=== PATIENT | female | born 1960 | race Caucasian/White ===

== ENCOUNTER → 2018-07-03 | Outpatient (CLI) | payer BC ==
[~2018-07-03] MED LIST: HYDACE5 PO; KETO10 PO; PARO20 PO; PARO30 PO; PRAV10 PO; Percocet 5-3251 EACH PO; VENL37.5ER
== END | disposition home or self-care (01) ==
LOC: LAB 14:35 → LAB SHORT 14:35
PROVIDERS: Hospitalist
DX: Z12.4 Encounter for screening for malignant neoplasm of cervix (principal)
CPT/HCPCS: G0145

== ENCOUNTER 2018-10-02 12:59 | Day surgery (SDC) | payer BC ==
[~2018-10-02] VITALS: Ht 162.6 cm; Wt 68.5 kg
[2018-10-02] MEDS ORDERED: CHOL10002 (13:21)
[2018-10-02] MEDS ORDERED: CYAN500 (13:21)
[2018-10-02] MEDS ORDERED: PARO30 PO (13:21)
[2018-10-02] MEDS ORDERED: FISH OIL + D31 EACH (13:22)
--- NOTE | 2018-10-02 13:29 | NUR ---
10/02/18 1329 Amanda Alvarez FIRST ATTEMPT IN RIGHT HAND INFILTRATED BY CHACE SECOND ATTEMPT IN RIGHT HAND INFILTRATED BY CHACE THIRD ATTEMPT IN RIGHT FOREARM SUCCESSFUL BY EMIGDIO
== END 2018-10-02 15:01 | disposition home or self-care (01) ==
LOC: ORSCSDS 12:59
PROVIDERS: Student in an Organized Health Care Education/Training Program
PROC: 0DBL8ZX Excision of Transverse Colon, Via Natural or Artificial Opening Endoscopic, Diagnostic (ICD-10-PCS; principal; 2018-10-02 14:15)
PROC: 0DBK8ZX Excision of Ascending Colon, Via Natural or Artificial Opening Endoscopic, Diagnostic (ICD-10-PCS; principal; 2018-10-02 14:15)
DX: Z12.11 Encounter for screening for malignant neoplasm of colon (principal); D12.2 Benign neoplasm of ascending colon; D12.3 Benign neoplasm of transverse colon; F17.210 Nicotine dependence, cigarettes, uncomplicated; G47.33 Obstructive sleep apnea (adult) (pediatric); Z99.81 Dependence on supplemental oxygen; F41.8 Other specified anxiety disorders; Z79.899 Other long term (current) drug therapy
CPT/HCPCS: 88305; J2704; J7120